=== PATIENT | female | born 1965 | race Caucasian/White ===

== ENCOUNTER 2023-01-11 10:29 | Emergency (ER) | payer MEDICARE, MEDICAID, SELFPAY ==
[2023-01-11 10:49] VITALS: BP 140/74; PULSE 65; RESP 18; TEMP 36.4; O2SAT 100; BMI 21.8
--- NOTE | 2023-01-11 11:41 | ED.GENADULT ---
HPI - General Adult General Chief complaint: Skin/Abscess/Foreign Body Stated complaint: Wound on back of thigh Time Seen by Provider: 01/11/23 11:21 Source: patient Mode of arrival: ambulatory Limitations: no limitations History of Present Illness HPI narrative: Patient is a 57-year-old female presenting to the emergency department with complaint of abscess to right posterior thigh. States that she noted the redness and tenderness on Sunday. Saw her PCP yesterday who prescribed Augmentin. Patient reports she has been taking as prescribed the area continues to be painfull and she would like it drained if possible. Denies fevers. MD complaint: Abscess Onset (ago): day(s) Location: right and lower extremity Severity: moderate Quality: aching Pain Consistency: constant Associated symptoms: denies other symptoms Treatments prior to arrival: other (Antibiotics) Related Data Allergies Allergy/AdvReac Type Severity Reaction Status Date / Time No Known Allergies Allergy Verified 01/11/23 10:48 Review of Systems Review of Systems: As per HPI. Yes all other systems are reviewed and are negative Constitutional: Constitutional: Reports as per HPI [facility] Social History Social History Advance Directives: No Advance Directives Information Provided: Yes Physical Exam ED Vital Signs: Vital Signs - 24 hr 01/11/23 10:49 Temperature 97.6 F Pulse Rate 65 Respiratory Rate 18 Blood Pressure 140/74 H Pulse Oximetry 100 Oxygen Delivery Method Room Air BMI result Body Mass Index 21.8 Vital signs have been reviewed and appear to be correct. Blood pressure slightly elevated. Heart rate normal. Respiratory rate normal. Temperature normal. Oxygen saturation normal. Const General: cooperative, healthy appearing and no acute distress Orientation/consciousness: oriented to person, oriented to place, oriented to time and patient oriented x3 HENMT Head: Yes normocephalic and Yes atraumatic Ears: external ears normal General nose exam: Normal external nose present Face and sinus: Yes face symmetric Mouth: oropharynx normal and moist mucous membranes Throat: Yes uvula midline Neck Neck: Yes normal visual inspection and Yes supple Resp Effort & Inspection: normal respiratory effort and able to speak in complete sentences Auscultation: clear to auscultation bilaterally Cardio Rate: regular rate Rhythm: regular rhythm Heart sounds: S1 normal heart sound present and S2 normal heart sound present Skin Other: 3cm diameter fluctuant pustule to right posterior thigh without surrounding erythema or warmth, not actively draining General skin exam: elasticity normal and turgor normal Neuro General: oriented to person, oriented to place, oriented to time and patient oriented x3 Cognition (Neuro): normal cognition Extrem General: Yes normal to inspection, Yes no pedal edema and Yes no calf tenderness Psych Mental Status: mental status grossly normal Affect: normal affect Thought process: Normal thought process present Medications Administered Discontinued Medications Generic Name Dose Route Start Last Admin Trade Name Vandana PRN Reason Stop Dose Admin Lidocaine HCl 5 ml 01/11/23 11:50 01/11/23 11:54 Lidocaine Hcl 1 % Mpf 5 Ml Vial INFILTRATI 01/11/23 11:51 5 ml ONCE ONE Administration Procedures Abscess I/D Site: lower extremity Side (if applicable): right Local Anesthetic: lidocaine 1% Amount of anesthesia used (mL): 2 Technique: incised with blade Amount of fluid expressed (mL): 0.5 Sent for culture/gram staining?: No Irrigation: Yes Packing used?: none Medical Decision Making Medical Decision Making MDM Narrative: Patient is a 57-year-old female presenting to the emergency department with complaint of abscess to right posterior thigh. On exam patient is awake, A+Ox3, VS WNL, afebrile, normal neurological exam without focal deficits, physical exam findings as above. Given reported symptoms and physical exam findings, initial differential includes abscess, cellulitis. Abscess drained as per procure note. Patient advised to complete full course of antibiotics prescribed by PCP. Instructed patient to assess the area daily with a mirror for signs of infection and return if this occurs. Patient verbalized understanding of and agreement with plan. Differential Diagnosis Differential Diagnoses: The differential diagnosis associated with the presentation includes As per MDM. External Record Review External record reviewed: Inpatient record, Office record and Outpatient record Discharge Plan Discharge Clinical Impression: Abscess of skin or subcutaneous tissue Qualifiers: Site of cutaneous abscess: extremity Site of cutaneous abscess of extremity: lower extremity Laterality: right Qualified Code(s): L02.415 - Cutaneous abscess of right lower limb Patient Disposition: Home, Self-Care Instructions: Abscess (ED), Abscess Follow-up (ED), Abscess Incision and Drainage (DC) Additional Instructions: You were evaluated in the ER for an abscess. Please keep the area surrounding the abscess clean and dry. You were given a prescription for antibiotics from your PCP, please take the antibiotics as directed for the full course of the medication. You should perform a skin check of the area daily. You can use Tylenol or ibuprofen per package directions as needed for pain. If necessary, you can alternate these medications so that you take one medication every 3 hours. For instance, at noon take ibuprofen, then at 3:00 p.m. take Tylenol, then at 6:00 p.m. take ibuprofen. Please schedule an appointment with your primary care physician as soon as possible for follow-up. Return to the emergency department if you experience fevers greater than 100.4? F, increased in area of redness or swelling, increasing amount of discharge from the area, increased tenderness around the area, or any other concerning symptoms.
[2023-01-11] MEDS: Lidocaine HCl 1 % MPF 5 ML VIAL INFILTRATI (11:54)
== END 2023-01-11 12:24 | disposition home or self-care (01) ==
PROVIDERS: Emergency Provider Student in an Organized Health Care Education/Training Program; PCP Internal Medicine
DX: L02.415 Cutaneous abscess of right lower limb (principal)
CPT/HCPCS: 10060; 99283; 99284